=== PATIENT | male | born 1965 | race Caucasian/White ===

== ENCOUNTER → 2017-07-17 16:13 | Outpatient (CLI) | payer OTHER, SELFPAY ==
--- NOTE | 2017-07-17 | COLBX_PTH ---
PATIENT: OCTAVIA SPARKS [facility] U#:[id number] AGE/SX: 59/M ROOM: RE07/17/[address]: Dr. Maxi Reyes MD : 1965 BED: DIS: SPEC #: [id number] RECD: 07/17/17 11:17 STATUS: RASHI JOSE #: [id number] TYE: 07/17/17 00:[address]: Maxi Reyes DEPT: SURGICAL PATHOLOGY RECD BY: Harjinder Bell ENTERED: 07/23/17 11:18 SP TYPE: COLON BX OTHR DR: KAMI Tissues: Sigmoid colon biopsy Procedures: Surgery Specimen Level IV HEADER OPERATION: Colonoscopy with biopsy PRE-OP DIAGNOSIS: Screening / polyp TISSUE SUBMITTED: Sigmoid polyp biopsy, rule out adenoma MICROSCOPIC DIAGNOSIS Sigmoid colon polyp, biopsy: Fragments of colonic mucosa, no pathologic diagnosis. REYNALDO:francine 07/24/17 MICROSCOPIC DESCRIPTION Slides are reviewed. GROSS DESCRIPTION Received in fixative is one container labeled with the patient's name and designated sigmoid colon biopsy. The specimen consists of two irregular fragments of light [place] soft tissue that in aggregate measure 0.4 x 0.2 x 0.1 cm. The specimen is totally submitted in one cassette. / SJ:francine 07/20/17 TC:4 CPT: 37109
== END ==
PROVIDERS: Visit Provider Internal Medicine Gastroenterology
DX: Z12.11 Encounter for screening for malignant neoplasm of colon (principal); K63.5 Polyp of colon
CPT/HCPCS: 88305

== ENCOUNTER → 2017-09-10 09:19 | Outpatient (CLI) | payer OTHER, SELFPAY ==
--- NOTE | 2017-09-10 09:25 | MRI_ITS ---
STUDY: MRI BRAIN WITH AND WITHOUT CONTRAST REASON FOR EXAM: Male, 52 years old. increased frequency of headaches; TECHNIQUE: Standardized multiplanar fat and water weighted pulse sequences were obtained. 10 ml of Gadavist contrast material was administered intravenously for the contrast portion of the examination. COMPARISON: August 12, 2012 FINDINGS: Normal size of the ventricles and extra-axial spaces for the patient's age. Normal white matter tracts of the supratentorial brain. Normal bilateral basal ganglia. Normal thalami. There is no extra-axial fluid accumulation. The left vertebral artery is again not seen.. Otherwise normal flow voids within the major intracranial circulation suggesting patency by spin echo criteria. Normal venous enhancement. There is no enhancing intra-axial or extra-axial abnormality. Normal sella turcica, pituitary gland, infundibular stalk, optic chiasm and hypothalamus. Normal tectal plate and pineal gland. Normal midbrain, ajith and medulla. Normal cerebellum. Normal basal cisterns. Normal bilateral temporal bones. Normal bilateral internal auditory canals. No demonstrated orbital abnormality, within the constraints of a routine brain study. There is mild mucosal thickening of the ethmoid sinus. . Normal calvarium and skull base. Normal visualized soft tissue structures. Normal visualized upper cervical spine. MRI/Brain W/WO Contrast IMPRESSION: There is no significant interval change. Electronically Signed: Kyra Arevalo MD at 15:41 EDT , Service support ,
== END ==
PROVIDERS: Family Provider Nurse Practitioner Family; PCP Nurse Practitioner Family; Visit Provider Nurse Practitioner Family
DX: R51 Headache (principal)
CPT/HCPCS: 70553; A9585

== ENCOUNTER 2019-12-08 13:00 | Outpatient (RCR) | payer OTHER, SELFPAY ==
--- NOTE | 2019-10-10 08:00 | HP.PTEVAL ---
Patient's Visit Information OCTAVIA SPARKS is a 54 year old M referred to Physical Therapy by TANIA REA with a diagnosis of Biceps Tenodesis 10/04/19. Date of Evaluation: 10/10/19 Physical Therapist: Torrie Beckham DPT - Visit Plan Frequency: 2-3x /Week Duration: 4 Weeks Plan: Open Biceps Tenodesis 10/04/2019- Follow OMN Protocol - Subjective Has had issues for about 10 years- Bursitis for years and then goes away. Went to Dr. Rea in [place] at [facility]- MRI- torn biceps- repaired on 10/04/2019. Plans to do the left one in the the spring. Headed home after surgery- has help at home. Has tried to sleep in bed the last 2 nights- gets to about 2 am- then heads into the reclyner- does sleep in the sling- normally a side. Worst: 09/03 Agg: spasm, or moving it a little wrong. Best: 03/28 Eases: sling, relax. He is not icing. Describes the pain mostly as dull and achy. Right hand dominate. He is driving with the sling. Was given a paper with pendulums and he is doing them. Describes no N/T in the hand except in the pinky when he sleeps and then he wiggles it and it goes away. Pain is located mostly in the sice of the chest- No radiating pain. No PEARSON, blurred vision or dizziness. 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 He is back to work completely. PMHx: MVP Meds: none - Objective Posture: FH, RS- can correct but does not maintain- wearing sling on right UE. Gait: no deviation- sling with no arm swing. Observation: incisions healing well- steri-strips along the bicpital incision and sutures in the scope incisions- no drainage- mild bruising. Palpation: tender along upper trap, bicipital groove, medial border of the scapula and into the deltoid. ROM: Elbow/Wrist/Hand: WNL, Shoulder PROM: flexion: 80 degrees, extn: 30 degrees, Abd: 40 degrees, IR: to belly, ER: neutral- all with significant guarding and pain. Strength: not tested will test as progression through protocol - Goals Goal 1:: Patient will be I with HEP and progression Goal Time Frame: 4-6 Weeks Goal 2:: Patient will demo full AROM of the right shoulder (as per protocol) Goal Time Frame: 4-6 Weeks Goal 3:: Patient will demo ability to perform all ADL's without pain for 1 week Goal Time Frame: 4-6 Weeks Goal 4:: Patient will maintian proper posture t/o tx session to demo increasd scap s/s. Goal Time Frame: 4-6 Weeks - Rehabilitation Potential Physical Therapy Diagnosis: Patient presents with hypomobility s/p Biceps Tenodesis- he has decreased ROM, strength and muscular endurance leading to poor posture and increased pain with the inability to perform ADL's. Rehabilitation Potential: Good - Anticipated Interventions Patient/Client Instruction: Educate patient on: Benefits of Fitness Program Therapeutic Exercise to Include: Strength training, Coordination, Body mechanics, Postural training, Flexibilty training, Neuromotor development, Passive ROM, Active ROM, Scapular Strength/Stabilization For the Purpose of:: To improve muscle performance and motor function TENS: Yes Cryotherapy (ice pack, ice massage): Yes Thermo therapy (hot pack): Yes Ultrasound (thermal/non thermal): No Thank you for the opportunity to evaluate your patient. For Medicare and Medicare HMO plans, please review the plan of care and approve it. It will need to be FAXED BACK to us at [phone] for Medicare purposes. For Medicare only, by signing this I certify the plan of care. Please let me know if there are questions or concerns regarding this plan of care. Physician Signature: Date:
--- NOTE | 2019-11-10 13:25 | HP.PTREVAL ---
TANIA REA, It has been my pleasure to treat OCTAVIA SPARKS over the last 10 visits for Right Biceps Tenodesis 10/04/19. Please see the progress note below for an update on the physical therapy plan of care! Subjective: He was sore after last session but not to bad- he feels that his left shoulder is worse than the right due to pain- plans to have MRI after done with PT Objective/Function: Posture: FH, RS- can correct but does not maintain- wearing sling on right UE. Palpation: not tender to touch. ROM: Elbow/Wrist/Hand: WNL, Shoulder AAROM: flexion: 100 degrees, extn: 30 degrees, Abd:90 degrees, IR: to belly, ER: 50 degrees Strength: isometrics: 4+/5 90/90 Plan Plan: Open Biceps Tenodesis 10/04/2019- Follow [facility]NI Protocol. 2x a week for 4 weeks progression through protocol Goals Goal 1:: Patient will be I with HEP and progression Goal Time Frame: 4-6 Weeks Goal Progress: Progressing Goal 2:: Patient will demo full AROM of the right shoulder (as per protocol) Goal Time Frame: 4-6 Weeks Goal Progress: Progressing Goal 3:: Patient will demo ability to perform all ADL's without pain for 1 week Goal Time Frame: 4-6 Weeks Goal Progress: Progressing Goal 4:: Patient will maintian proper posture t/o tx session to demo increasd scap s/s. Goal Time Frame: 4-6 Weeks Goal Progress: Progressing Anticipated Interventions Patient/Client Instruction: Educate patient on: Benefits of Fitness Program Therapeutic Exercise to Include: Strength training, Coordination, Body mechanics, Postural training, Flexibilty training, Neuromotor development, Passive ROM, Active ROM, Scapular Strength/Stabilization For the Purpose of:: To improve muscle performance and motor function TENS: Yes Cryotherapy (ice pack, ice massage): Yes Thermo therapy (hot pack): Yes Ultrasound (thermal/non thermal): No Please do not hesitate to contact me at [phone] by phone or if you have questions or concerns regarding this new plan of care! Sincerely, Torrie Beckham DPT
--- NOTE | 2019-12-08 13:15 | HP.PTDCSUM ---
It has been my pleasure to treat OCTAVIA SPARKS referred by TANIA REA, with the diagnosis of Right Biceps Tenodesis 10/04/19 for a total of 18 visit(s). Discharge Date: Please see the following information for a summary of their discharge status. Subjective: Patient reports that his shoulder is good- he is working it more and more- he is planning on having his left one done in spring. Thinks that his shoulder is 90% back to normal and is heading to the 100% simona quickly. Right shoulder Pain Intensity (Out of 10): 0 % Improvement: 90 Objective/Function: Posture:no deviation noted UE. Palpation: not tender to touch. ROM: Elbow/Wrist/Hand: WNL, Shoulder AROM: flexion: 120 degrees, extn: 30 degrees, Abd:110 degrees, IR: to belly, ER: 50 degrees Strength:Shoulder in availbel range 4/5 Goal 1:: Patient will be I with HEP and progression Goal Progress: Progressing Goal 2:: Patient will demo full AROM of the right shoulder (as per protocol) Goal Progress: Progressing Goal 3:: Patient will demo ability to perform all ADL's without pain for 1 week Goal Progress: Progressing Goal 4:: Patient will maintian proper posture t/o tx session to demo increasd scap s/s. Goal Progress: Progressing Plan: Discharge to I home exercise program. Highly encouraged home exercise program If there are questions or concerns regarding this patient's physical therapy, please feel free to call me at [phone]. Thank you for the referral of this patient. Sincerely, Torrie Beckham DPT
== END 2019-12-08 19:00 | disposition home or self-care (01) ==
LOC: PT 13:00
PROVIDERS: PCP Nurse Practitioner Family
DX: S43.431D Superior glenoid labrum lesion of right shoulder, subsequent encounter (principal); S46.111D Strain of muscle, fascia and tendon of long head of biceps, right arm, subsequent encounter
CPT/HCPCS: 97110; 97140; 97161; 97164

== ENCOUNTER → 2020-05-08 12:44 | Outpatient (CLI) | payer OTHER, SELFPAY ==
--- NOTE | 2020-05-08 12:47 | ART_ITS ---
Reason For Study: PVD Procedure A bilateral lower extremity continuous wave Doppler with analog waveform analysis,segmental pressures,and ankle brachial indexes without exercise. Left Segmental Pressures Left brachial= 140mmHg. Left posterior tibial artery = 176mmHg. Left dorsalis pedis artery = 157mmHg. The left dorsalis pedis waveforms are triphasic. The left posterior tibial artery waveforms are triphasic. Right Segmental Pressures Right brachial= 131mmHg. Right posterior tibial artery = 171mmHg. Right dorsalis pedis artery = 143mmHg. The right dorsalis pedis waveforms are triphasic. The right posterior tibial artery waveforms are triphasic. Indices The right ankle brachial index by the dorsalis pedis is 1.02. The right ankle brachial index by the posterior tibial artery is 1.22. The left ankle brachial index by the posterior tibial artery is 1.26. The left ankle brachial index by the dorsalis pedis is 1.12. Interpretation Summary Bilateral normal flow at rest with triphasic flow and LILY 1.22 and 1.26. Ordering Physician: Jeff Marin Performed By: CORIE COX RVT
== END ==
PROVIDERS: PCP Nurse Practitioner Family; Visit Provider Nurse Practitioner Family
DX: I73.9 Peripheral vascular disease, unspecified (principal)
CPT/HCPCS: 93923

== ENCOUNTER → 2023-02-17 | Outpatient (CLI) | payer OTHER, SELFPAY ==
--- OUTSIDE RECORDS SUMMARY | 2023-02-17 18:43 | XMS RPT_ITS | CCD ---
Author Name Unknown Address [address] [place] [address] Organization [facility] Care Team Providers Care Safety Counselor Name Role Phone AMERICA DAVIS Admitting Unavailable AMERICA DAVIS Attending Unavailable AMERICA DAVIS Primary Care Unavailable SINGH COSTELLO Consulting Unavailable SINGH COSTELLO Referring Unavailable PROVIDER, UNKNOWN Consulting Unavailable ELÍAS VEGAPULP ROLLERJOHN Attending Francie COSTELLO APRN - PULP ROLLER, SINGH Mckeon Primary Care U navailable Allergies Allergy Classification Reported Allergen(s) Allergy Type Date of Onset Reaction(s) Facility (1 source) Penicillin Drug Allergy [facility] Repository Results Test Name Value Interpretation Reference Range Facil ity Encounters Encounter Date Encounter Type Care Provider Facility Start: 02-03-2023 End: 02-04-2023 ambulatory JOHN MCKINLEY APRN-PULP ROLLER Facility:B Start: 08-19-2019 End: 08-19-2019 Emergency department patient visit AMERICA DAVIS [facility] Payers Date Payer Category Payer Unknown [id number] 1965 Unknown [id number] 1965 Unknown [id number] Summary Purpose Family History No Family History Records FoundNo Family History Records Found Advance Directives No Advanced Directives Records FoundNo Advanced Directives Records Found Additional Source Comments (unrecognized sect ion and content) No Status Records FoundNo Status Records Found INFORMATION SOURCE (unrecogn ized section and content) DATE CREATED AUTHOR AUTHOR'S JIGAR ALVAREZ 02/06/2023 [facility] ([place]) FOR RECORDS PERTAINING TO PATIENTS WHO ARE OR HAVE BEEN ENROLLED IN A CHEMICAL DEPENDENCY/SUBSTANCEABUSE PROGRAM, SOME INFORMATION MAY BE OMITTED. This clinical summary was aggregated from multiple sources. Caution should be exercised in using it in the provision of clinical care. This summary normalizes information from multiple sources, and as a consequence, information in this document may materially change the coding, format and clinical context of patient data. In addition, data may be omitted in some cases. CLINICAL DECISIONS SHOULD BE BASED ON THE PRIMARY CLINICAL RECORDS. [facility] [employer] [facility]. provides no warranty or guarantee of the accuracy or completeness of information in this document.
--- NOTE | 2023-02-17 18:54 | CT_ITS ---
STUDY: CT LEFT FOOT REASON FOR EXAM: Male, 57 years old. CONTUSION LEFT GREAT TOE RADIATION DOSAGE (If Supplied By Facility): CTDIvol = ( 15.35 ) mGy, DLP = ( 465.06 ) mGycm TECHNIQUE: Thin section transaxial imaging of the left foot was obtained, with sagittal and coronal reconstructed images. Individualized dose optimization techniques were used for this CT. COMPARISON: None. FINDINGS: There is mild tibiotalar arthrosis with tiny marginal osteophyte formation. Intact talus, calcaneus, and tarsal bones. There is a small posterior calcaneal tuberosity spur at the distal Achilles tendon insertion. Normal visualized subtalar, talonavicular, calcaneocuboid, tarsal and tarsometatarsal articulations. Normal metatarsi. There is mild degenerative arthrosis at the first MTP joint. Normal tibial and fibular sesamoid bones. Normal interphalangeal joint of the great toe. Normal phalanges of the great toe. Normal second through fifth metatarsophalangeal joints. Normal interphalangeal joints and phalanges of the lesser toes. There is no demonstrated acute fracture. The soft tissue structures are unremarkable. CT/Extremity Lower without Contra IMPRESSION: Mild tibiotalar arthrosis. Small posterior calcaneal tuberosity spur at the distal Achilles tendon insertion. Mild degenerative arthrosis at the first MTP joint. Electronically Signed: Dominic Arevalo MD at 19:58 EST ,
== END | disposition home or self-care (01) ==
PROVIDERS: PCP Nurse Practitioner Family; Visit Provider Physician Assistant
DX: S90.112D Contusion of left great toe without damage to nail, subsequent encounter (principal)
CPT/HCPCS: 73700

== ENCOUNTER → 2023-02-18 | Outpatient (CLI) | payer OTHER, SELFPAY ==
--- OUTSIDE RECORDS SUMMARY | 2023-02-18 15:17 | XMS RPT_ITS | CCD ---
Author Name Unknown Address [address] [place] [address] Organization [facility] Care Team Providers Care Electronic Commerce Specialist Name Role Phone AMERICA DAVIS Admitting Unavailable AMERICA DAVIS Attending Unavailable AMERICA DAVIS Primary Care Unavailable SINGH COSTELLO Consulting Unavailable SINGH COSTELLO Referring Unavailable PROVIDER, UNKNOWN Consulting Unavailable ELÍAS VEGAESTHETICIANJOHN Attending Francie COSTELLO APRN - ESTHETICIAN, SINGH Mckeon Primary Care U navailable Allergies Allergy Classification Reported Allergen(s) Allergy Type Date of Onset Reaction(s) Facility (1 source) Penicillin Drug Allergy [facility] Repository Results Test Name Value Interpretation Reference Range Facil ity Encounters Encounter Date Encounter Type Care Provider Facility Start: 02-03-2023 End: 02-04-2023 ambulatory JOHN MCKINLEY APRN-ESTHETICIAN Facility:B Start: 08-19-2019 End: 08-19-2019 Emergency department patient visit AMERICA DAVIS [facility] Payers Date Payer Category Payer Unknown [id number] 1965 Unknown [id number] 1965 Unknown [id number] Summary Purpose Family History No Family History Records FoundNo Family History Records Found Advance Directives No Advanced Directives Records FoundNo Advanced Directives Records Found Additional Source Comments (unrecognized sect ion and content) No Status Records FoundNo Status Records Found INFORMATION SOURCE (unrecogn ized section and content) DATE CREATED AUTHOR AUTHOR'S JIGAR ALVAREZ 02/06/2023 [facility] ([place]) FOR RECORDS PERTAINING TO PATIENTS WHO ARE [...] BE BASED ON THE PRIMARY CLINICAL RECORDS. [facility] [employer] [facility]. provides no warranty or guarantee of the accuracy or completeness of information in this document.
[2023-02-18 15:20] LABS: Absolute Lymphocyte Count 2.63 X10^3/uL (0.83-4.51); Absolute Neutrophil Count 7.3 X10^3/uL (2.0-7.7); Basophil# 0.04 X10^3/uL; Basophil% 0.4 % (0-1); Eosinophil# 0.23 X10^3/uL; Hematocrit 44.4 % (40-54); Hemoglobin 14.8 g/dL (13.0-16.5); Lymphocyte # 2.63 X10^3/ul (0.83-4.51); Lymphocyte % 23.3 % (19-41); Mean Corp Hgb Conc 33.3 g/dL (32-36); Mean Corpuscular Hgb 29.5 pg (27.0-32.0); Mean Corpuscular Volume 88.6 fL (80-94); Mean Platelet Vol. 9.7 fl (6.2-12.0); Monocyte% 8.8 % (0-10); NRBC Flagged by Analyzer 0 % (0-5); Neutrophil # 7.28 X10^3/uL (2.7-7.7); Neutrophil % 64.4 % (47-70); Platelet Count 259 K/mm3 (150-450); RBC Distribution Width CV 12.7 % (11.6-14.6); RBC Distribution Width SD 41.3 fl (35.1-43.9); Red Blood Count 5.01 M/mm3 (4.6-6.2); White Blood Count 11.3 K/mm3 (4.4-11.0)
[2023-02-18 16:05] LABS: Erythrocyte Sedimentation Rate 3 mm/hr (0-20)
[2023-02-18 16:06] LABS: Anion Gap 6 (5-15); BUN 18 mg/dL (7-18); CRP < 2.90 mg/L (0.0-3.0); Calcium,Total 8.8 mg/dL (8.5-10.1); Chloride 106 mmol/L (98-107); Creatinine, Serum 1.06 mg/dL (0.70-1.30); EST Glomerular Filtration Rate 77 mL/min (>60); Est Glom Filt Rate - Afr Amer 93 mL/min (>60); Glucose 92 mg/dL (74-106); Potassium 4.1 mmol/L (3.5-5.1); Sodium Level 140 mmol/L (136-145); Uric Acid 7.5 mg/dL (3.5-7.2)
== END | disposition home or self-care (01) ==
PROVIDERS: PCP Nurse Practitioner Family; Referring Provider Physician Assistant; Visit Provider Physician Assistant
DX: M25.475 Effusion, left foot (principal)
CPT/HCPCS: 36415; 80048; 84550; 85025; 85652; 86140